=== PATIENT | male | born 1940 | race Caucasian/White ===

== ENCOUNTER 2018-06-10 09:52 | Inpatient (IN) | payer OTHER, MEDICARE ==
[~2018-06-10] VITALS: Ht 175.3 cm; Wt 97.6 kg
[2018-06-10] VITALS (13 sets, daily range): BP systolic 103–148; BP diastolic 59–89
[2018-06-10] MEDS ORDERED: LORazepam 0.5 MG tablet PO PRN (10:30)
[2018-06-10] MEDS ORDERED: nitroGLYCERIN 0.4mg SUBLingual tab SL PRN (10:30)
[2018-06-10] MEDS ORDERED: diphenhydrAMINE 25mg capsule PO PRN (10:30)
[2018-06-10] MEDS ORDERED: iohexol 350 MG/ML 50ML vial IV ONE ×2 (10:50→11:37)
[2018-06-10] MEDS ORDERED: fentaNYL/PF 50MCG/1 ML 2ML syringe ONE (10:50)
[2018-06-10] MEDS ORDERED: iohexol 350MG/ML 100ml bottle IV ONE (10:50)
[2018-06-10] MEDS ORDERED: midazolam 2 mg/2 ml injection ONE ×2 (10:50→11:15)
[2018-06-10] MEDS ORDERED: OMEP-271 PO (10:53)
[2018-06-10] MEDS ORDERED: SIMV80TA2 PO (10:53)
[2018-06-10] MEDS ORDERED: TERA10CA4 PO (10:53)
[2018-06-10 11:00] LABS: BASOPHILS % (AUTO) 0.3 % (0-1); EOSINOPHILS # (AUTO) 0.2 X10'3 (0-0.9); EOSINOPHILS % (AUTO) 3.7 % (0-6); HEMATOCRIT 41.1 % (42.0-52.0); HEMOGLOBIN 13.9 g/dl (14.0-17.9); LYMPHOCYTES # (AUTO) 1.6 X10'3 (1.1-4.8); MEAN CORPUSCULAR HEMOGLOBIN 29.6 PG (27.0-31.0); MEAN CORPUSCULAR HGB CONC 33.9 % (33.0-36.5); MEAN CORPUSCULAR VOLUME 87.5 FL (78-98); MEAN PLATELET VOLUME 8.8 FL (7.4-10.4); MONOCYTES # (AUTO) 0.6 X10'3 (0-0.9); MONOCYTES % (AUTO) 9.8 % (2-12); NEUTROPHILS # (AUTO) 3.6 X10'3 (1.8-7.7); NEUTROPHILS % (AUTO) 59.2 % (42-75); PLATELET COUNT 202 X10'3 (140-440); RED CELL DISTRIBUTION WIDTH 13.4 % (11.5-14.5)
[2018-06-10] MEDS: normal saline 1000ml 1,000 ML IV SCH ×2 (11:07→16:12)
[2018-06-10 11:09] LABS: ALBUMIN 3.9 G/DL (3.4-5.0); ANION GAP 6 (8-16); BLOOD UREA NITROGEN 20 MG/DL (7-18); BUN/CREATININE RATIO 21.3 (5.4-32.0); CALCIUM 9.2 MG/DL (8.5-10.1); CHLORIDE 106 MMOL/L (99-107); CREATININE 0.94 MG/DL (0.60-1.10); GLUCOSE 95 MG/DL (70-104); POTASSIUM 3.8 MMOL/L (3.5-5.1); SODIUM 139 MMOL/L (135-145); TOTAL CARBON DIOXIDE 26.8 MMOL/L (24-32); eGFR 78 ML/MIN
[2018-06-10 11:10] LABS: PARTIAL THROMBOPLASTIN TIME 28 SECONDS (22-32); PROTHROMBIN TIME 10.8 SECONDS (9.0-12.0)
[2018-06-10] MEDS ORDERED: LIDOcaine 1% 30ml preserv. free vial ONE (11:16)
[2018-06-10] MEDS ORDERED: HYDROmorphone 1 mg/ml syringe ONE (11:25)
[2018-06-10] MEDS ORDERED: nitroGLYCERIN-Tridil 50MG/D5W 250 ML IV ONE (11:27)
[2018-06-10] MEDS ORDERED: OXAZEpam 15mg capsule PO PRN (12:10)
[2018-06-10] MEDS ORDERED: ondansetron/PF 4mg/2ml inj IV PRN (12:10)
[2018-06-10] MEDS ORDERED: proCHLORperazine 10 MG/2 ml inj IV PRN (12:10)
[2018-06-10] MEDS ORDERED: HYDROcodone/acetaminophen 10/325mg tab PO PRN (12:10)
[2018-06-10] MEDS ORDERED: HYDROcodone/acetaminophen 5mg/325mg tablet PO PRN (12:10)
[2018-06-10] MEDS ORDERED: albumin (human) 25% 100 ML IV solution IV ONE (14:00)
[2018-06-10] MEDS ORDERED: papaverine 30 mg/ml 2ml inj. ONE (14:00)
[2018-06-10] MEDS ORDERED: magnesium 1 GM/2 ML inj ONE (14:00)
[2018-06-10] MEDS ORDERED: phenylephrine 10mg/ml inj. ONE (14:00)
[2018-06-10] MEDS ORDERED: aminocaproic acid 250 MG/1 ML inj. ONE (14:00)
[2018-06-10] MEDS ORDERED: LIDOcaine 2% (20 mg/ml) 5ml cardiac syringe ONE (14:00)
[2018-06-10] MEDS ORDERED: heparin 1,000 units/ml 10ml inj ONE (14:00)
[2018-06-10] MEDS ORDERED: potassium Cl 2 mEq/ml inj IV ONE (14:00)
[2018-06-10] MEDS ORDERED: heparin 10,000 units/1 ML INJ ONE ×2 (14:00)
[2018-06-10] MEDS ORDERED: sodium bicarbonate (8.4%) 1 mEq/ml syringe ONE (14:00)
[2018-06-10] MEDS ORDERED: methylPREDNISolone sod. succ. 500mg inj ONE (14:00)
[2018-06-10] MEDS ORDERED: calcium chloride 100 MG/1 ML inj IV ONE (14:00)
[2018-06-10] MEDS ORDERED: dextrose 50%-water 50ml dispensing syringe IV PRN (14:25)
[2018-06-10] MEDS ORDERED: MESSAGE TO NURSING PO ONE ×4 (14:25)
[2018-06-10 16:51] LABS: INR 1.1 INR; PARTIAL THROMBOPLASTIN TIME 28 SECONDS (22-32); PROTHROMBIN TIME 10.9 SECONDS (9.0-12.0)
[2018-06-10 16:52] LABS: HEMOGLOBIN A1C 5.8 % (4.5-6.2)
[2018-06-10 16:53] LABS: ALBUMIN 3.6 G/DL (3.4-5.0); ANION GAP 6 (8-16); BLOOD UREA NITROGEN 15 MG/DL (7-18); CALCIUM 8.7 MG/DL (8.5-10.1); CHLORIDE 107 MMOL/L (99-107); CREATININE 0.94 MG/DL (0.60-1.10); GLUCOSE 118 MG/DL (70-104); POTASSIUM 3.6 MMOL/L (3.5-5.1); SODIUM 141 MMOL/L (135-145); TOTAL CARBON DIOXIDE 28.5 MMOL/L (24-32); eGFR 78 ML/MIN
[2018-06-10 17:10] LABS: HEMATOCRIT 38.9 % (42.0-52.0); HEMOGLOBIN 13.4 g/dl (14.0-17.9); MEAN CORPUSCULAR HEMOGLOBIN 29.9 PG (27.0-31.0); MEAN CORPUSCULAR HGB CONC 34.6 % (33.0-36.5); MEAN CORPUSCULAR VOLUME 86.6 FL (78-98); MEAN PLATELET VOLUME 8.3 FL (7.4-10.4); PLATELET COUNT 196 X10'3 (140-440); RED BLOOD COUNT 4.49 X10'6 (4.70-6.10); RED CELL DISTRIBUTION WIDTH 13.8 % (11.5-14.5); WHITE BLOOD COUNT 5.8 X10'3 (4.5-11.0)
[2018-06-10] MEDS: atorvastatin 20mg tablet PO SCH (20:13)
[2018-06-11 02:00] VITALS: BP 133/79
[2018-06-11 06:00] VITALS: BP 127/89
[2018-06-11] MEDS ORDERED: pantoprazole 40mg Tablet.DR PO SCH (07:30)
[2018-06-11] MEDS ORDERED: terazosin 5mg capsule PO SCH (08:00)
[2018-06-11] MEDS ORDERED: MESSAGE TO NURSING PO ONE (10:00)
[2018-06-11 11:00] VITALS: BP 136/79
[2018-06-11 15:00] VITALS: BP 115/79
[2018-06-11] MEDS ORDERED: ringers solution, lacted 1,000 ML IV ONE (16:27)
[2018-06-11 16:50] LABS: ABG BASE EXCESS 1.7 mmol/L (-2.0-3.0); ABG HCO3 25.5 mmol/L (22.0-26.0); ABG OXYGEN SATURATION 95.2 % (95-98); ABG PCO2 (T) 37.6 mmHg (35.0-48.0); FCOHb 0.3 % (0.5-1.5); FMetHb 0.1 % (0.3-1.12); FO2Hb 94.8 % (94-100); TOTAL HEMOGLOBIN 14.7 G/dl (14.0-18.0)
[2018-06-11 19:00] VITALS: BP 147/79
[2018-06-11] MEDS ORDERED: mupirocin 2% nasal ointment 1gm UD NS SCH (20:00)
[2018-06-11] MEDS: atorvastatin 20mg tablet PO SCH (20:54)
[2018-06-11 23:00] VITALS: BP 125/79
[2018-06-12] VITALS (14 sets, daily range): BP systolic 107–143; BP diastolic 49–70
[2018-06-12] MEDS ORDERED: insulin regular, human inj. 100 UNITS in normal saline 100ml IV soln 100 ML IV SCH ×4 (05:00→10:50)
[2018-06-12] MEDS ORDERED: vancomycin/NS 1 GM ADD-VANTAGE 250 ML IV ONE (05:00)
[2018-06-12] MEDS ORDERED: cefazolin/dext.iso 2gm/50ml 50 ML IV ONE (05:00)
[2018-06-12] MEDS ORDERED: LORazepam 2 mg/ml vial IV ONE (06:00)
[2018-06-12] MEDS ORDERED: famotidine 20mg tablet PO ONE (06:00)
[2018-06-12] MEDS ORDERED: LORazepam 2 mg/ml vial ONE (06:40)
[2018-06-12] MEDS ORDERED: aminocaproic acid 250 MG/1 ML inj. ONE (06:45)
[2018-06-12] MEDS ORDERED: pancuronium br 1mg/ml inj IV ONE ×2 (06:45→07:53)
[2018-06-12] MEDS ORDERED: MIDAZolam 1mg/ml 10ml vial ONE (07:03)
[2018-06-12] MEDS ORDERED: SUFENTANIL CITRATE 50 MCG/ML 2ml ampule IV ONE (07:03)
[2018-06-12 07:46] LABS: ABG BASE EXCESS -3.9 mmol/L (-2.0-3.0); ABG HCO3 21.2 mmol/L (22.0-26.0); ABG PCO2 38.7 mmHg (35.0-45.0); ABG PH 7.356 (7.350-7.450); ABG PO2 201.9 mmHg (60.0-100.0); CL (ABG) 107 mmol/L (99-107); FCOHb 0.3 % (0.5-1.5); FMetHb 0.2 % (0.3-1.12); FO2Hb 98.5 % (94-100); GLUCOSE (ABG) 91 mg/dl (70-105); IONIZED CA (ABG) 1.19 mmol/L (1.03-1.32); K (ABG) 3.8 mmol/L (3.3-5.1); NA (ABG) 140 mmol/L (135-145)
[2018-06-12] MEDS ORDERED: LIDOcaine 1%/PF 5ML 10 MG/ML VIAL ONE (07:53)
[2018-06-12] MEDS ORDERED: propofol inj 20 ML IV ONE (07:53)
[2018-06-12] MEDS ORDERED: papaverine 30 mg/ml 2ml inj. IA ONE (08:19)
[2018-06-12] MEDS ORDERED: heparin 10,000 units/1 ML INJ IJ ONE (08:19)
[2018-06-12] MEDS ORDERED: albumin (Human) 5% 250ml 250 ML IV ONE (08:30)
[2018-06-12] MEDS ORDERED: insulin Lispro (HumaLOG) vial - multi-dose SQ SCH (09:00)
[2018-06-12 09:01] LABS: ABG BASE EXCESS VENOUS -1.6 mmol/L; ABG PO2 VENOUS 43.8 mmHg; CL (ABG) 106 mmol/L (99-107); FCOHb VENOUS 0.7 %; FHHb VENOUS 22.4 %; FMetHb VENOUS 0.4 %; FO2Hb VENOUS 76.5 %; GLUCOSE (ABG) 98 mg/dl (70-105); IONIZED CA (ABG) 1.15 mmol/L (1.03-1.32); K (ABG) 4.1 mmol/L (3.3-5.1); NA (ABG) 138 mmol/L (135-145)
[2018-06-12 09:20] LABS: ABG HCO3 22.4 mmol/L (22.0-26.0); ABG OXYGEN SATURATION 99.2 % (95-98); ABG PCO2 36.5 mmHg (35.0-45.0); ABG PH 7.405 (7.350-7.450); ABG PO2 353.7 mmHg (60.0-100.0); CL (ABG) 104 mmol/L (99-107); FCOHb 0.3 % (0.5-1.5); FMetHb 0.4 % (0.3-1.12); FO2Hb 98.5 % (94-100); GLUCOSE (ABG) 113 mg/dl (70-105); IONIZED CA (ABG) 1.04 mmol/L (1.03-1.32); K (ABG) 4.8 mmol/L (3.3-5.1); NA (ABG) 134 mmol/L (135-145); TOTAL HEMOGLOBIN 9.8 G/dl (14.0-18.0)
[2018-06-12 10:36] LABS: ABG BASE EXCESS -0.9 mmol/L (-2.0-3.0); ABG HCO3 23.9 mmol/L (22.0-26.0); ABG OXYGEN SATURATION 76.4 % (95-98); ABG PCO2 40.3 mmHg (35.0-45.0); ABG PH 7.391 (7.350-7.450); CL (ABG) 105 mmol/L (99-107); FCOHb 0.4 % (0.5-1.5); FMetHb 0.4 % (0.3-1.12); FO2Hb 75.8 % (94-100); GLUCOSE (ABG) 141 mg/dl (70-105); IONIZED CA (ABG) 1.17 mmol/L (1.03-1.32); K (ABG) 4.2 mmol/L (3.3-5.1); NA (ABG) 134 mmol/L (135-145)
[2018-06-12] MEDS ORDERED: DOPamine 400mg/D5W 250ml 250 ML IV PRN (10:49)
[2018-06-12] MEDS ORDERED: niCARDipine/sod cl 20mg/200ml 200 ML IV PRN (10:49)
[2018-06-12] MEDS ORDERED: nitroGLYCERIN-Tridil 50MG/D5W 250 ML IV PRN (10:49)
[2018-06-12] MEDS ORDERED: magnesium hydroxide 30ml (MOM) UD suspension PO PRN (10:50)
[2018-06-12] MEDS ORDERED: normal saline 250ml IV soln 250 ML IV PRN (10:50)
[2018-06-12] MEDS ORDERED: potassium Cl 20mEq/100mL bag 100 ML IV PRN ×2 (10:50)
[2018-06-12] MEDS ORDERED: sodium phosphate inj. 15 MMOL in dextrose 5%-water 150 ML IV PRN (10:50)
[2018-06-12] MEDS ORDERED: albumin (Human) 5% 250ml 250 ML IV PRN (10:50)
[2018-06-12] MEDS ORDERED: metoclopramide 5 mg/ml inj IV PRN (10:50)
[2018-06-12] MEDS ORDERED: sodium phosphate inj. 30 MMOL in dextrose 5%-water 250 ML IV PRN (10:50)
[2018-06-12] MEDS ORDERED: dextrose 50%-water 50ml dispensing syringe IV PRN (10:50)
[2018-06-12] MEDS ORDERED: morphine 4 MG/ML inj SYRINge IV PRN ×2 (10:50)
[2018-06-12] MEDS ORDERED: magnesium 1gm/100ml D5W IVPB 100 ML IV PRN (10:50)
[2018-06-12] MEDS ORDERED: acetaminophen 325mg tablet PO PRN (10:50)
[2018-06-12] MEDS ORDERED: Neutra Phos packet PO PRN (10:50)
[2018-06-12] MEDS ORDERED: HYDROcodone/acetaminophen 10/325mg tab PO PRN ×2 (10:50)
[2018-06-12 11:17] LABS: BASOPHILS % (AUTO) 0 % (0-1); EOSINOPHILS # (AUTO) 0.2 X10'3 (0-0.9); EOSINOPHILS % (AUTO) 1.6 % (0-6); HEMATOCRIT 31.3 % (42.0-52.0); HEMOGLOBIN 10.6 g/dl (14.0-17.9); LYMPHOCYTES # (AUTO) 0.8 X10'3 (1.1-4.8); LYMPHOCYTES % (AUTO) 7.1 % (21-51); MEAN CORPUSCULAR HEMOGLOBIN 29.5 PG (27.0-31.0); MEAN CORPUSCULAR HGB CONC 33.9 % (33.0-36.5); MEAN PLATELET VOLUME 8.2 FL (7.4-10.4); MONOCYTES # (AUTO) 0.5 X10'3 (0-0.9); MONOCYTES % (AUTO) 3.9 % (2-12); NEUTROPHILS # (AUTO) 10.1 X10'3 (1.8-7.7); NEUTROPHILS % (AUTO) 87.4 % (42-75); PLATELET COUNT 143 X10'3 (140-440); RED CELL DISTRIBUTION WIDTH 13.7 % (11.5-14.5); WHITE BLOOD COUNT 11.5 X10'3 (4.5-11.0)
[2018-06-12 11:31] LABS: ALANINE AMINOTRANSFERASE 21 U/L (12-78); ALBUMIN 3.3 G/DL (3.4-5.0); ALBUMIN/GLOBULIN RATIO 1.7 (1.1-1.5); ALKALINE PHOSPHATASE 41 IU/L (46-116); ANION GAP 8 (8-16); ASPARTATE AMINO TRANSFERASE 23 U/L (10-37); BILIRUBIN,TOTAL 0.8 MG/DL (0.1-1.0); BLOOD UREA NITROGEN 13 MG/DL (7-18); BUN/CREATININE RATIO 14.3 (5.4-32.0); CALCIUM 8.5 MG/DL (8.5-10.1); CHLORIDE 107 MMOL/L (99-107); CREATININE 0.91 MG/DL (0.60-1.10); GLUCOSE 132 MG/DL (70-104); MAGNESIUM 2.5 MG/DL (1.5-2.4); PHOSPHORUS 2.7 MG/DL (2.3-4.5); POTASSIUM 4.2 MMOL/L (3.5-5.1); SODIUM 142 MMOL/L (135-145); TOTAL CARBON DIOXIDE 27.4 MMOL/L (24-32); TOTAL PROTEIN 5.3 G/DL (6.4-8.2); eGFR 81 ML/MIN
[2018-06-12 11:45] LABS: ABG BASE EXCESS -2.8 mmol/L (-2.0-3.0); ABG HCO3 22.7 mmol/L (22.0-26.0); ABG OXYGEN SATURATION 95.6 % (95-98); ABG PCO2 (T) 40.2 mmHg (35.0-48.0); ABG PH (T) 7.364 (7.350-7.450); ABG PO2 (T) 79.5 mmHg (83-108); FCOHb 0.3 % (0.5-1.5); FMetHb 0.1 % (0.3-1.12); FO2Hb 95.2 % (94-100); PEEP 5 cm H2O; RESPIRATORY RATE 12 b/min; TIDAL VOLUME 600 mL; TOTAL HEMOGLOBIN 12.2 G/dl (14.0-18.0)
[2018-06-12 12:05] LABS: INR 1.2 INR; PARTIAL THROMBOPLASTIN TIME 33 SECONDS (22-32)
[2018-06-12] MEDS: sodium chloride 0.45% 1,000 ML IV SCH (12:17)
[2018-06-12] MEDS: potassium Cl 20mEq/100mL bag 100 ML IV PRN ×2 (12:31→18:57)
[2018-06-12] MEDS: insulin Lispro (HumaLOG) vial - multi-dose SQ SCH ×2 (13:00→18:00)
[2018-06-12 15:56] LABS: ABG BASE EXCESS -4.3 mmol/L (-2.0-3.0); ABG HCO3 20.4 mmol/L (22.0-26.0); ABG OXYGEN SATURATION 93.2 % (95-98); ABG PCO2 (T) 36.2 mmHg (35.0-48.0); ABG PH (T) 7.369 (7.350-7.450); ABG PO2 (T) 70.7 mmHg (83-108); FCOHb 0.3 % (0.5-1.5); FO2Hb 92.9 % (94-100); RESPIRATORY RATE (OBSERVED) 18 b/min; TIDAL VOLUME 516 mL; TOTAL HEMOGLOBIN 12.3 G/dl (14.0-18.0)
[2018-06-12] MEDS: ceFAZolin 1GM/D5W- ADD-VANTAGE 50 ML IV SCH (16:00)
[2018-06-12] MEDS: ondansetron/PF 4mg/2ml inj IV PRN (16:24)
[2018-06-12 18:15] LABS: ALBUMIN 3.8 G/DL (3.4-5.0); ANION GAP 13 (8-16); BLOOD UREA NITROGEN 15 MG/DL (7-18); CALCIUM 8.3 MG/DL (8.5-10.1); CHLORIDE 106 MMOL/L (99-107); CREATININE 1.15 MG/DL (0.60-1.10); GLUCOSE 215 MG/DL (70-104); POTASSIUM 4.3 MMOL/L (3.5-5.1); SODIUM 141 MMOL/L (135-145); TOTAL CARBON DIOXIDE 22.2 MMOL/L (24-32); eGFR 62 ML/MIN
[2018-06-12 18:24] LABS: BASOPHILS % (AUTO) 0 % (0-1); EOSINOPHILS # (AUTO) 0.1 X10'3 (0-0.9); EOSINOPHILS % (AUTO) 0.8 % (0-6); HEMATOCRIT 32.4 % (42.0-52.0); HEMOGLOBIN 11.1 g/dl (14.0-17.9); LYMPHOCYTES # (AUTO) 0.3 X10'3 (1.1-4.8); LYMPHOCYTES % (AUTO) 2.7 % (21-51); MEAN CORPUSCULAR HEMOGLOBIN 29.4 PG (27.0-31.0); MEAN CORPUSCULAR HGB CONC 34.2 % (33.0-36.5); MEAN CORPUSCULAR VOLUME 86.1 FL (78-98); MEAN PLATELET VOLUME 8.6 FL (7.4-10.4); MONOCYTES # (AUTO) 0.4 X10'3 (0-0.9); MONOCYTES % (AUTO) 3.5 % (2-12); NEUTROPHILS # (AUTO) 11.2 X10'3 (1.8-7.7); PLATELET COUNT 157 X10'3 (140-440); RED BLOOD COUNT 3.77 X10'6 (4.70-6.10); RED CELL DISTRIBUTION WIDTH 13.4 % (11.5-14.5)
[2018-06-12 19:10] LABS: PHOSPHORUS 2.9 MG/DL (2.3-4.5)
[2018-06-12] MEDS: magnesium 4gm in 100ml NS 100 ML IV PRN (19:59)
[2018-06-12] MEDS: vancomycin/NS 1 GM ADD-VANTAGE 250 ML IV SCH (20:01)
[2018-06-12] MEDS: mupirocin 2% nasal ointment 1gm UD NS SCH (20:03)
[2018-06-12] MEDS: docusate sod 100mg capsule PO SCH (20:04)
[2018-06-13] VITALS (23 sets, daily range): BP systolic 110–155; BP diastolic 39–89
[2018-06-13] MEDS: ceFAZolin 1GM/D5W- ADD-VANTAGE 50 ML IV SCH ×4 (01:14→23:35)
[2018-06-13 02:51] LABS: PARTIAL THROMBOPLASTIN TIME 29 SECONDS (22-32); PROTHROMBIN TIME 10.7 SECONDS (9.0-12.0)
[2018-06-13 02:57] LABS: ALANINE AMINOTRANSFERASE 25 U/L (12-78); ALBUMIN 3.7 G/DL (3.4-5.0); ALBUMIN/GLOBULIN RATIO 1.5 (1.1-1.5); ALKALINE PHOSPHATASE 39 IU/L (46-116); ANION GAP 10 (8-16); ASPARTATE AMINO TRANSFERASE 28 U/L (10-37); BILIRUBIN,TOTAL 0.6 MG/DL (0.1-1.0); BLOOD UREA NITROGEN 15 MG/DL (7-18); BUN/CREATININE RATIO 13.3 (5.4-32.0); CALCIUM 8.2 MG/DL (8.5-10.1); CHLORIDE 107 MMOL/L (99-107); CREATININE 1.13 MG/DL (0.60-1.10); GLUCOSE 123 MG/DL (70-104); MAGNESIUM 2.4 MG/DL (1.5-2.4); PHOSPHORUS 2.7 MG/DL (2.3-4.5); POTASSIUM 4.1 MMOL/L (3.5-5.1); SODIUM 140 MMOL/L (135-145); TOTAL CARBON DIOXIDE 22.8 MMOL/L (24-32); TOTAL PROTEIN 6.1 G/DL (6.4-8.2); eGFR 63 ML/MIN
[2018-06-13 03:08] LABS: BASOPHILS % (AUTO) 0 % (0-1); EOSINOPHILS # (AUTO) 0.1 X10'3 (0-0.9); EOSINOPHILS % (AUTO) 0.8 % (0-6); HEMATOCRIT 31.7 % (42.0-52.0); HEMOGLOBIN 10.7 g/dl (14.0-17.9); LYMPHOCYTES # (AUTO) 0.5 X10'3 (1.1-4.8); LYMPHOCYTES % (AUTO) 3.2 % (21-51); MEAN CORPUSCULAR HEMOGLOBIN 29.3 PG (27.0-31.0); MEAN CORPUSCULAR HGB CONC 33.6 % (33.0-36.5); MEAN CORPUSCULAR VOLUME 87.2 FL (78-98); MEAN PLATELET VOLUME 9.2 FL (7.4-10.4); MONOCYTES # (AUTO) 0.9 X10'3 (0-0.9); MONOCYTES % (AUTO) 5.9 % (2-12); NEUTROPHILS % (AUTO) 90.1 % (42-75); PLATELET COUNT 159 X10'3 (140-440); RED BLOOD COUNT 3.64 X10'6 (4.70-6.10); RED CELL DISTRIBUTION WIDTH 13.6 % (11.5-14.5); WHITE BLOOD COUNT 14.4 X10'3 (4.5-11.0)
[2018-06-13] MEDS: potassium Cl 20mEq/100mL bag 100 ML IV PRN (03:24)
[2018-06-13] MEDS: magnesium 4gm in 100ml NS 100 ML IV PRN ×2 (03:25→08:19)
[2018-06-13] MEDS ORDERED: atorvastatin 10mg tablet PO SCH (08:00)
[2018-06-13] MEDS ORDERED: metoprolol tartrate 12.5mg (1/2 tablet) PO SCH (08:00)
[2018-06-13] MEDS ORDERED: aspirin 325mg tablet, delayed-release (Ecotrin) PO SCH (08:00)
[2018-06-13] MEDS: mupirocin 2% nasal ointment 1gm UD NS SCH ×2 (08:18→19:46)
[2018-06-13] MEDS: pantoprazole 40mg Tablet.DR PO SCH (08:18)
[2018-06-13] MEDS: docusate sod 100mg capsule PO SCH ×2 (08:18→19:55)
[2018-06-13] MEDS: vancomycin/NS 1 GM ADD-VANTAGE 250 ML IV SCH ×2 (08:19→19:51)
[2018-06-13] MEDS ORDERED: glucagon, human recombinant 1mg kit SUBCUT PRN (09:45)
[2018-06-13] MEDS ORDERED: dextrose ORAL solution 15 GM/59 ML bottle PO PRN ×2 (09:45)
[2018-06-13] MEDS ORDERED: MESSAGE TO PHARMACY PO ONE (09:45)
[2018-06-13] MEDS ORDERED: insulin Lispro (HumaLOG) vial - multi-dose SQ SCH (09:45)
[2018-06-13] MEDS ORDERED: dextrose 50%-water 50ml dispensing syringe IV PRN ×2 (09:45)
[2018-06-13] MEDS: ketorolac tromethamine 15mg/ml inj. IV SCH ×2 (14:44→19:48)
[2018-06-13] MEDS: ondansetron/PF 4mg/2ml inj IV PRN ×2 (17:23→23:34)
[2018-06-13] MEDS: metoprolol tartrate 12.5mg (1/2 tablet) PO SCH (19:54)
[2018-06-13] MEDS ORDERED: metoprolol tartrate 50mg tablet PO SCH ×2 (20:00)
[2018-06-13] MEDS: insulin glargine (Lantus) pen - multi-dose SQ SCH (21:00)
[2018-06-13 22:57] LABS: MAGNESIUM 2.9 MG/DL (1.5-2.4); PHOSPHORUS 3.5 MG/DL (2.3-4.5)
[2018-06-14] VITALS (24 sets, daily range): BP systolic 122–157; BP diastolic 67–96
[2018-06-14] MEDS: ketorolac tromethamine 15mg/ml inj. IV SCH ×4 (02:00→20:00)
[2018-06-14 02:32] LABS: BASOPHILS % (AUTO) 0 % (0-1); EOSINOPHILS # (AUTO) 0.2 X10'3 (0-0.9); EOSINOPHILS % (AUTO) 1.2 % (0-6); HEMATOCRIT 31.7 % (42.0-52.0); HEMOGLOBIN 10.7 g/dl (14.0-17.9); LYMPHOCYTES # (AUTO) 0.9 X10'3 (1.1-4.8); LYMPHOCYTES % (AUTO) 5.2 % (21-51); MEAN CORPUSCULAR HEMOGLOBIN 29.6 PG (27.0-31.0); MEAN CORPUSCULAR HGB CONC 33.7 % (33.0-36.5); MEAN CORPUSCULAR VOLUME 87.8 FL (78-98); MEAN PLATELET VOLUME 8.6 FL (7.4-10.4); MONOCYTES # (AUTO) 1.3 X10'3 (0-0.9); MONOCYTES % (AUTO) 7.3 % (2-12); NEUTROPHILS # (AUTO) 15.6 X10'3 (1.8-7.7); NEUTROPHILS % (AUTO) 86.3 % (42-75); PLATELET COUNT 146 X10'3 (140-440); RED BLOOD COUNT 3.61 X10'6 (4.70-6.10); RED CELL DISTRIBUTION WIDTH 13.7 % (11.5-14.5)
[2018-06-14 02:48] LABS: ALBUMIN 3.6 G/DL (3.4-5.0); ANION GAP 6 (8-16); BLOOD UREA NITROGEN 23 MG/DL (7-18); BUN/CREATININE RATIO 20.5 (5.4-32.0); CALCIUM 8.5 MG/DL (8.5-10.1); CHLORIDE 103 MMOL/L (99-107); CREATININE 1.12 MG/DL (0.60-1.10); GLUCOSE 138 MG/DL (70-104); MAGNESIUM 2.8 MG/DL (1.5-2.4); PHOSPHORUS 3.2 MG/DL (2.3-4.5); SODIUM 136 MMOL/L (135-145); TOTAL CARBON DIOXIDE 26.6 MMOL/L (24-32); eGFR 64 ML/MIN
[2018-06-14] MEDS: pantoprazole 40mg Tablet.DR PO SCH (07:43)
[2018-06-14] MEDS: aspirin 81mg tablet.DR PO SCH (07:43)
[2018-06-14] MEDS: docusate sod 100mg capsule PO SCH ×2 (07:44→20:05)
[2018-06-14] MEDS: atorvastatin 20mg tablet PO SCH (07:44)
[2018-06-14] MEDS: metoprolol tartrate 12.5mg (1/2 tablet) PO SCH ×2 (07:45→20:05)
[2018-06-14] MEDS: mupirocin 2% nasal ointment 1gm UD NS SCH (07:52)
[2018-06-14] MEDS ORDERED: oxyCODONE/APAP 5-325mg tablet PO PRN ×2 (08:35)
[2018-06-14] MEDS ORDERED: magnesium citrate 296ml oral solution PO ONE (08:40)
[2018-06-14] MEDS: sodium chloride 0.45% 1,000 ML IV SCH (10:49)
[2018-06-14] MEDS: Protein Shake (high protein) 240ml (8oz) cup PO SCH ×2 (13:00→19:23)
[2018-06-14] MEDS: insulin glargine (Lantus) pen - multi-dose SQ SCH (20:05)
[2018-06-15] VITALS (18 sets, daily range): BP systolic 107–144; BP diastolic 62–92
[2018-06-15] MEDS: ketorolac tromethamine 15mg/ml inj. IV SCH ×4 (02:00→20:00)
[2018-06-15 05:11] LABS: ACTIVATED CLOTTING TIME 122 SEC (101-148)
[2018-06-15 05:16] LABS: BASOPHILS % (AUTO) 0.1 % (0-1); EOSINOPHILS # (AUTO) 0.1 X10'3 (0-0.9); EOSINOPHILS % (AUTO) 0.7 % (0-6); HEMATOCRIT 33.7 % (42.0-52.0); HEMOGLOBIN 11.1 g/dl (14.0-17.9); LYMPHOCYTES # (AUTO) 1.1 X10'3 (1.1-4.8); LYMPHOCYTES % (AUTO) 8.4 % (21-51); MEAN CORPUSCULAR VOLUME 87.6 FL (78-98); MEAN PLATELET VOLUME 9.3 FL (7.4-10.4); MONOCYTES # (AUTO) 1.4 X10'3 (0-0.9); MONOCYTES % (AUTO) 10.6 % (2-12); NEUTROPHILS # (AUTO) 10.4 X10'3 (1.8-7.7); NEUTROPHILS % (AUTO) 80.2 % (42-75); PLATELET COUNT 177 X10'3 (140-440); RED BLOOD COUNT 3.85 X10'6 (4.70-6.10); RED CELL DISTRIBUTION WIDTH 13.6 % (11.5-14.5)
[2018-06-15 05:43] LABS: ALBUMIN 3.4 G/DL (3.4-5.0); ANION GAP 3 (8-16); BLOOD UREA NITROGEN 20 MG/DL (7-18); BUN/CREATININE RATIO 22.2 (5.4-32.0); CALCIUM 8.8 MG/DL (8.5-10.1); CHLORIDE 102 MMOL/L (99-107); GLUCOSE 121 MG/DL (70-104); MAGNESIUM 2.4 MG/DL (1.5-2.4); PHOSPHORUS 2.8 MG/DL (2.3-4.5); POTASSIUM 4.4 MMOL/L (3.5-5.1); SODIUM 136 MMOL/L (135-145); TOTAL CARBON DIOXIDE 30.9 MMOL/L (24-32); eGFR 82 ML/MIN
[2018-06-15] MEDS ORDERED: potassium Cl 20 mEq SR tablet PO PRN ×4 (06:45→07:10)
[2018-06-15] MEDS ORDERED: potassium Cl 40MEQ/NS 500ml 500 ML IV PRN ×2 (07:10)
[2018-06-15] MEDS ORDERED: magnesium 1gm/100ml D5W IVPB 100 ML IV PRN (07:10)
[2018-06-15] MEDS ORDERED: magnesium 4gm in 100ml NS 100 ML IV PRN (07:10)
[2018-06-15] MEDS ORDERED: magnesium Cl slow-release 64mg tablet PO PRN (07:10)
[2018-06-15] MEDS: Protein Shake (high protein) 240ml (8oz) cup PO SCH ×3 (08:00→18:19)
[2018-06-15] MEDS: magnesium Cl slow-release 64mg tablet PO SCH ×2 (08:00→20:00)
[2018-06-15] MEDS ORDERED: K and/or MAG REPLACEMENT MC SCH (08:00)
[2018-06-15] MEDS: potassium Cl 20 mEq SR tablet PO SCH ×2 (08:00→19:53)
[2018-06-15] MEDS: atorvastatin 20mg tablet PO SCH (08:04)
[2018-06-15] MEDS: docusate sod 100mg capsule PO SCH ×2 (08:04→20:38)
[2018-06-15] MEDS: metoprolol tartrate 12.5mg (1/2 tablet) PO SCH ×2 (08:04→20:38)
[2018-06-15] MEDS: aspirin 81mg tablet.DR PO SCH (08:04)
[2018-06-15] MEDS: pantoprazole 40mg Tablet.DR PO SCH (08:04)
[2018-06-15 09:55] LABS: ACT @ 1.70 U 298 SEC (193-297); ACT @ 2.84 U 398 SEC (260-420); BASELINE ACT 144 SEC (101-148)
[2018-06-15 10:33] LABS: ABG PO2 40.2 mmHg (60.0-100.0)
[2018-06-16] VITALS (10 sets, daily range): BP systolic 104–143; BP diastolic 56–89
[2018-06-16] MEDS: ketorolac tromethamine 15mg/ml inj. IV SCH ×4 (02:00→20:00)
[2018-06-16 06:19] LABS: BASOPHILS % (AUTO) 0.3 % (0-1); EOSINOPHILS # (AUTO) 0.2 X10'3 (0-0.9); EOSINOPHILS % (AUTO) 1.8 % (0-6); HEMATOCRIT 34.2 % (42.0-52.0); HEMOGLOBIN 11.4 g/dl (14.0-17.9); LYMPHOCYTES # (AUTO) 1.5 X10'3 (1.1-4.8); LYMPHOCYTES % (AUTO) 15.7 % (21-51); MEAN CORPUSCULAR HGB CONC 33.4 % (33.0-36.5); MEAN CORPUSCULAR VOLUME 86.8 FL (78-98); MONOCYTES # (AUTO) 1.1 X10'3 (0-0.9); MONOCYTES % (AUTO) 11.5 % (2-12); NEUTROPHILS # (AUTO) 6.9 X10'3 (1.8-7.7); NEUTROPHILS % (AUTO) 70.7 % (42-75); PLATELET COUNT 207 X10'3 (140-440); RED BLOOD COUNT 3.94 X10'6 (4.70-6.10); RED CELL DISTRIBUTION WIDTH 13.6 % (11.5-14.5); WHITE BLOOD COUNT 9.8 X10'3 (4.5-11.0)
[2018-06-16 06:44] LABS: ALBUMIN 3.3 G/DL (3.4-5.0); ANION GAP 10 (8-16); BLOOD UREA NITROGEN 21 MG/DL (7-18); BUN/CREATININE RATIO 21.2 (5.4-32.0); CALCIUM 9.3 MG/DL (8.5-10.1); CHLORIDE 103 MMOL/L (99-107); CREATININE 0.99 MG/DL (0.60-1.10); GLUCOSE 102 MG/DL (70-104); POTASSIUM 3.8 MMOL/L (3.5-5.1); SODIUM 140 MMOL/L (135-145); TOTAL CARBON DIOXIDE 27.2 MMOL/L (24-32); eGFR 73 ML/MIN
[2018-06-16] MEDS: pantoprazole 40mg Tablet.DR PO SCH ×2 (07:30→08:14)
[2018-06-16] MEDS: potassium Cl 20 mEq SR tablet PO SCH ×2 (08:00→20:59)
[2018-06-16] MEDS: atorvastatin 20mg tablet PO SCH ×2 (08:00→08:14)
[2018-06-16] MEDS: aspirin 81mg tablet.DR PO SCH ×2 (08:00→08:14)
[2018-06-16] MEDS: docusate sod 100mg capsule PO SCH ×2 (08:00→20:00)
[2018-06-16] MEDS: metoprolol tartrate 12.5mg (1/2 tablet) PO SCH ×2 (08:00→08:15)
[2018-06-16] MEDS: magnesium Cl slow-release 64mg tablet PO SCH ×3 (08:00→20:59)
[2018-06-16] MEDS: Protein Shake (high protein) 240ml (8oz) cup PO SCH ×3 (08:15→18:00)
[2018-06-16] MEDS ORDERED: amiodarone 150mg/dext, iso-os 100 ML IV ONE (09:30)
[2018-06-16] MEDS: amiodarone/D5 360MG/200ML BAG 200 ML IV SCH ×3 (09:55→21:36)
[2018-06-17] VITALS (11 sets, daily range): BP systolic 92–139; BP diastolic 64–91
[2018-06-17] MEDS: ketorolac tromethamine 15mg/ml inj. IV SCH ×3 (02:00→20:00)
[2018-06-17] MEDS: amiodarone/D5 360MG/200ML BAG 200 ML IV SCH ×3 (03:48→19:14)
[2018-06-17 06:05] LABS: BASOPHILS % (AUTO) 0.2 % (0-1); EOSINOPHILS # (AUTO) 0.4 X10'3 (0-0.9); HEMATOCRIT 38.7 % (42.0-52.0); HEMOGLOBIN 13.1 g/dl (14.0-17.9); LYMPHOCYTES % (AUTO) 19.8 % (21-51); MEAN CORPUSCULAR HEMOGLOBIN 29.5 PG (27.0-31.0); MEAN CORPUSCULAR HGB CONC 33.8 % (33.0-36.5); MEAN CORPUSCULAR VOLUME 87.2 FL (78-98); MONOCYTES # (AUTO) 1.3 X10'3 (0-0.9); MONOCYTES % (AUTO) 12.7 % (2-12); NEUTROPHILS # (AUTO) 6.5 X10'3 (1.8-7.7); NEUTROPHILS % (AUTO) 63.3 % (42-75); PLATELET COUNT 246 X10'3 (140-440); RED BLOOD COUNT 4.44 X10'6 (4.70-6.10); RED CELL DISTRIBUTION WIDTH 13.4 % (11.5-14.5); WHITE BLOOD COUNT 10.2 X10'3 (4.5-11.0)
[2018-06-17 06:11] LABS: ALBUMIN 3.2 G/DL (3.4-5.0); ANION GAP 9 (8-16); BLOOD UREA NITROGEN 19 MG/DL (7-18); BUN/CREATININE RATIO 17.9 (5.4-32.0); CALCIUM 9.2 MG/DL (8.5-10.1); CHLORIDE 103 MMOL/L (99-107); CREATININE 1.06 MG/DL (0.60-1.10); GLUCOSE 107 MG/DL (70-104); MAGNESIUM 1.6 MG/DL (1.5-2.4); POTASSIUM 3.5 MMOL/L (3.5-5.1); SODIUM 138 MMOL/L (135-145); TOTAL CARBON DIOXIDE 26.5 MMOL/L (24-32); eGFR 68 ML/MIN
[2018-06-17] MEDS: metoprolol tartrate 12.5mg (1/2 tablet) PO SCH ×2 (07:18→19:14)
[2018-06-17] MEDS: atorvastatin 20mg tablet PO SCH (07:19)
[2018-06-17] MEDS: aspirin 81mg tablet.DR PO SCH (07:19)
[2018-06-17] MEDS: pantoprazole 40mg Tablet.DR PO SCH (07:19)
[2018-06-17] MEDS: potassium Cl 20 mEq SR tablet PO SCH ×2 (07:19→19:14)
[2018-06-17] MEDS: docusate sod 100mg capsule PO SCH ×2 (07:20→19:16)
[2018-06-17] MEDS: magnesium Cl slow-release 64mg tablet PO SCH ×2 (07:22→19:14)
[2018-06-17] MEDS ORDERED: potassium Cl 20 mEq SR tablet PO STA (07:46)
[2018-06-17] MEDS: magnesium 1gm/100ml D5W IVPB 100 ML IV SCH ×2 (07:50→12:43)
[2018-06-17] MEDS: Protein Shake (high protein) 240ml (8oz) cup PO SCH (18:00)
[2018-06-18 01:00] VITALS: BP 143/86
[2018-06-18 03:00] VITALS: BP 136/86
[2018-06-18 05:00] VITALS: BP 140/82
[2018-06-18 06:00] VITALS: BP 140/82
[2018-06-18 06:23] LABS: BASOPHILS # (AUTO) 0.1 X10'3 (0-0.2); BASOPHILS % (AUTO) 0.6 % (0-1); EOSINOPHILS # (AUTO) 0.5 X10'3 (0-0.9); EOSINOPHILS % (AUTO) 4.3 % (0-6); HEMATOCRIT 38.4 % (42.0-52.0); HEMOGLOBIN 13.2 g/dl (14.0-17.9); LYMPHOCYTES # (AUTO) 2.1 X10'3 (1.1-4.8); LYMPHOCYTES % (AUTO) 16.7 % (21-51); MEAN CORPUSCULAR HEMOGLOBIN 29.6 PG (27.0-31.0); MEAN CORPUSCULAR HGB CONC 34.5 % (33.0-36.5); MEAN CORPUSCULAR VOLUME 85.8 FL (78-98); MEAN PLATELET VOLUME 8.5 FL (7.4-10.4); MONOCYTES # (AUTO) 1.2 X10'3 (0-0.9); MONOCYTES % (AUTO) 9.9 % (2-12); NEUTROPHILS # (AUTO) 8.4 X10'3 (1.8-7.7); NEUTROPHILS % (AUTO) 68.5 % (42-75); PLATELET COUNT 266 X10'3 (140-440); RED BLOOD COUNT 4.47 X10'6 (4.70-6.10); RED CELL DISTRIBUTION WIDTH 13.6 % (11.5-14.5); WHITE BLOOD COUNT 12.3 X10'3 (4.5-11.0)
[2018-06-18 06:45] LABS: ALBUMIN 3.1 G/DL (3.4-5.0); ANION GAP 6 (8-16); BLOOD UREA NITROGEN 21 MG/DL (7-18); BUN/CREATININE RATIO 22.8 (5.4-32.0); CALCIUM 8.8 MG/DL (8.5-10.1); CHLORIDE 104 MMOL/L (99-107); CREATININE 0.92 MG/DL (0.60-1.10); GLUCOSE 113 MG/DL (70-104); POTASSIUM 4.1 MMOL/L (3.5-5.1); SODIUM 135 MMOL/L (135-145); eGFR 80 ML/MIN
[2018-06-18] MEDS ORDERED: amiodarone 200mg tablet PO SCH (08:00)
[2018-06-18] MEDS: docusate sod 100mg capsule PO SCH (08:00)
[2018-06-18] MEDS: magnesium Cl slow-release 64mg tablet PO SCH (08:14)
[2018-06-18] MEDS: potassium Cl 20 mEq SR tablet PO SCH (08:14)
[2018-06-18] MEDS: atorvastatin 20mg tablet PO SCH (08:15)
[2018-06-18] MEDS: metoprolol tartrate 12.5mg (1/2 tablet) PO SCH (08:15)
[2018-06-18] MEDS: aspirin 81mg tablet.DR PO SCH (08:15)
[2018-06-18] MEDS: pantoprazole 40mg Tablet.DR PO SCH (08:15)
[2018-06-18] MEDS: Protein Shake (high protein) 240ml (8oz) cup PO SCH (08:17)
[2018-06-18 08:40] LABS: ALANINE AMINOTRANSFERASE 60 U/L (12-78); ALBUMIN/GLOBULIN RATIO 0.9 (1.1-1.5); ALKALINE PHOSPHATASE 60 IU/L (46-116); ASPARTATE AMINO TRANSFERASE 27 U/L (10-37); BILIRUBIN,DIRECT 0.1 MG/DL (0-0.3); BILIRUBIN,TOTAL 0.6 MG/DL (0.1-1.0); TOTAL PROTEIN 6.4 G/DL (6.4-8.2)
[2018-06-18 11:00] VITALS: BP 116/74
[2018-06-18] MEDS ORDERED: AMIO200T40 PO (12:07)
[2018-06-18] MEDS ORDERED: ASPI-1071 PO (12:07)
[2018-06-18] MEDS ORDERED: METO25TA6 PO (12:07)
== END 2018-06-18 15:12 | disposition home health service (06) | DRG 234 ==
LOC: SSTAY O 09:52 → PCU 3S 14:25 → CICU 2S 06-12 10:27 → PCU 3S 06-15 15:00
PROVIDERS: ADMIT Thoracic Surgery (Cardiothoracic Vascular Surgery); ATTEND Thoracic Surgery (Cardiothoracic Vascular Surgery)
PROC: 4A023N7 Measurement of Cardiac Sampling and Pressure, Left Heart, Percutaneous Approach (ICD-10-PCS; principal; 2018-06-10)
PROC: B2111ZZ Fluoroscopy of Multiple Coronary Arteries using Low Osmolar Contrast (ICD-10-PCS; 2018-06-10)
PROC: B2151ZZ Fluoroscopy of Left Heart using Low Osmolar Contrast (ICD-10-PCS; 2018-06-10)
PROC: B3101ZZ Fluoroscopy of Thoracic Aorta using Low Osmolar Contrast (ICD-10-PCS; 2018-06-10)
PROC: B3111ZZ Fluoroscopy of Right Brachiocephalic-Subclavian Artery using Low Osmolar Contrast (ICD-10-PCS; 2018-06-10)
PROC: B3121ZZ Fluoroscopy of Left Subclavian Artery using Low Osmolar Contrast (ICD-10-PCS; 2018-06-10)
PROC: B41J1ZZ Fluoroscopy of Other Lower Arteries using Low Osmolar Contrast (ICD-10-PCS; 2018-06-10)
PROC: 02100Z9 Bypass Coronary Artery, One Artery from Left Internal Mammary, Open Approach (ICD-10-PCS; 2018-06-12)
PROC: 021009W Bypass Coronary Artery, One Artery from Aorta with Autologous Venous Tissue, Open Approach (ICD-10-PCS; 2018-06-12)
PROC: 06BP4ZZ Excision of Right Saphenous Vein, Percutaneous Endoscopic Approach (ICD-10-PCS; 2018-06-12)
PROC: 03HY32Z Insertion of Monitoring Device into Upper Artery, Percutaneous Approach (ICD-10-PCS; 2018-06-12)
PROC: 5A1221Z Performance of Cardiac Output, Continuous (ICD-10-PCS; 2018-06-12)
PROC: B24BZZ4 Ultrasonography of Heart with Aorta, Transesophageal (ICD-10-PCS; 2018-06-12)
PROC: 05HM33Z Insertion of Infusion Device into Right Internal Jugular Vein, Percutaneous Approach (ICD-10-PCS; 2018-06-12)
PROC: B543ZZA Ultrasonography of Right Jugular Veins, Guidance (ICD-10-PCS; 2018-06-12)
DX: I25.10 Atherosclerotic heart disease of native coronary artery without angina pectoris (principal); Q23.1 Congenital insufficiency of aortic valve; I50.30 Unspecified diastolic (congestive) heart failure; K21.9 Gastro-esophageal reflux disease without esophagitis; E78.5 Hyperlipidemia, unspecified; M19.90 Unspecified osteoarthritis, unspecified site; I48.0 Paroxysmal atrial fibrillation; N40.0 Benign prostatic hyperplasia without lower urinary tract symptoms; K59.09 Other constipation; Z88.8 Allergy status to other drugs, medicaments and biological substances
CPT/HCPCS: 0232T; 93312; 93325; 93458; 93567; 36415; 36600; 71045; 71046; 80048; 80053; 80076; 82330; 82435; 82803; 82947; 82948; 83036; 83735; 84100; 84132; 84295; 84439; 84443; 85018; 85025; 85027; 85347; 85384; 85610; 85730; 86885; 86900; 86901; 86920; 93005; 93880; 93970; 94002; 94010; 94668; 97110; 97116; 97162; 97530; 99152; 99153; A4620; A6212; A6255; A6257; A6258; A6402; A6449; A7000; A7048; C1751; C1760; C1769; J0282; J0690; J1170; J1644; J1815; J1885; J2001; J2060; J2150; J2250; J2270; J2370; J2405; J2440; J2704; J2765; J2930; J3010; J3370; J3475; J3480; J3490; J7030; J7120; P9045; P9047; Q0163; Q9967

== ENCOUNTER 2020-11-30 10:15 | Outpatient (CLI) | payer OTHER ==
[~2020-11-30 10:15] MED LIST: AMIO200T61 PO; ASPI-1071 PO; METO25TA6 PO; OMEP-271 PO; SIMV80TA2 PO; TERA10CA4 PO
== END 2020-11-30 23:59 | disposition home or self-care (01) ==
LOC: WOUND CARE 10:15
PROVIDERS: ATTEND Nurse Practitioner
DX: L90.5 Scar conditions and fibrosis of skin (principal); E78.5 Hyperlipidemia, unspecified; K21.9 Gastro-esophageal reflux disease without esophagitis; I25.10 Atherosclerotic heart disease of native coronary artery without angina pectoris; M19.90 Unspecified osteoarthritis, unspecified site; N40.0 Benign prostatic hyperplasia without lower urinary tract symptoms; Z79.82 Long term (current) use of aspirin
CPT/HCPCS: G0463